=== PATIENT | male | born 1965 | race Caucasian/White ===

== ENCOUNTER 2016-03-11 22:01 | Observation (INO) ==
[2016-03-11] MEDS ORDERED: MORPHINE 2 MG/1 ML SYRINGE IV STA (22:55)
[2016-03-11] MEDS ORDERED: ALUM/MAG/SIMETH/LIDO VISC 1:1 30 ML BOTTLE PO STA (22:55)
[2016-03-11] MEDS ORDERED: ASPIRIN 325 MG TABLET PO STA (22:55)
[2016-03-11] MEDS ORDERED: KETOROLAC 30 MG/1 ML VIAL IV STA (22:55)
[2016-03-11] MEDS ORDERED: ONDANSETRON 4 MG/2 ML VIAL IV STA (22:55)
[2016-03-11] MEDS ORDERED: NITROGLYCERIN 2% OINT 1 INCH/GM PACK TOP STA (22:55)
--- NOTE | 2016-03-11 22:59 | EKG Report ---
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
[2016-03-11] MEDS ORDERED: ASPIRIN 325 MG TABLET ONE (23:00)
[2016-03-11] MEDS ORDERED: ALUM/MAG/SIMETH/LIDO VISC 1:1 30 ML BOTTLE PO ONE (23:00)
[2016-03-11 23:01] LABS: Basophils # 0.1 10*3/uL (0.0-0.2); Basophils % 0.4 % (0.0-0.8); Eosinophils # 0.3 10*3/uL (0.0-0.87); Eosinophils % 2.5 % (0.00-10.9); Hemoglobin 14.7 GM/DL (14.0-18.0); Immature Granulocytes % 0.4 %; Immature Granulocytes Absolute 0.05 #; Lymphocytes # 2.9 10*3/uL (1.4-4.0); Lymphocytes % 23.8 % (21.2-54.2); Mean Corpuscular Hemoglobin 32 PG (27-34); Mean Corpuscular Volume 92.3 FL (87-102); Mean Platelet Volume 12.9 FL (9.6-12.0); Neutrophils # 7.9 10*3/uL (1.4-7.4); Neutrophils % 64.9 % (38.7-73.9); Platelet Count 178 10*3/uL (130-400); Red Blood Count 4.55 10*6/uL (3.8-5.5); Red Cell Distribution Width 11.9 % (9.3-17.3); White Blood Count 12.2 10*3/uL (4.5-13.71)
[2016-03-11] MEDS ORDERED: NITROGLYCERIN 2% OINT 1 INCH/GM PACK TOP ONE (23:01)
[2016-03-11] MEDS ORDERED: ONDANSETRON 4 MG/2 ML VIAL ONE (23:01)
[2016-03-11] MEDS ORDERED: KETOROLAC 30 MG/1 ML VIAL ONE (23:01)
[2016-03-11] MEDS ORDERED: MORPHINE 2 MG/1 ML SYRINGE ONE (23:01)
[2016-03-11 23:06] LABS: Apearance,Urine CLEAR (Clear); Bilirubin,Urine Negative (Negative); Blood, Urine Negative (Negative); Glucose,Urine (UA) Negative (Negative); Ketones,Urine Negative (Negative); Nitrite,Urine Negative (Negative); Protein,Urine Negative; Urine Color Straw (Yellow); Urine Specific Gravity 1.004 (1.001-1.035); Urine Urobilinogen < 2.0 EU/DL (0.2-1.0)
[2016-03-11 23:08] LABS: D-Dimer <= 0.5 MG/L FEU; INR 1.3
[2016-03-11 23:17] LABS: Barbiturates Screen,Urine Negative (Negative); Benzodiazepines Screen,Urine Negative (Negative); Cannabinoid Screen,Urine Negative (Negative); Opiate Screen,Urine Negative (Negative); Phencyclidine Screen,Urine Negative (Negative)
[2016-03-11 23:25] LABS: Albumin 3.9 G/DL (3.4-5.0); Bilirubin,Total 0.6 MG/DL (0.2-1.0); Calcium 8.9 MG/DL (8.5-10.1); Magnesium 2.1 MG/DL (1.8-2.4); Osmolality,Calculated 287.8 MOS/KG (273-304); Potassium 4.1 MMOL/L (3.5-5.1); Total Protein 6.9 G/DL (6.4-8.3)
--- NOTE | 2016-03-12 00:14 | Emergency Department Note ---
I, Bessy Solano, am scribing for, and in the presence of, Jasper Dalton MD 23:14. IKrystle Charles R, MD, personally performed the services described in this documentation, ascribed by Bessy Solano in my presence, and it is both accurate and complete . Arrival - Arrival Chief Complaint: Chest Pain Stated Complaint: heart,clamy ED Nursing Triage Note: C/C had episode of right sided chest pain and epigastric pain at 17:00, got clammy while in bed. Pain comes and goes. Pt just discharged from having heart cath. No blockages. Went into A-fib after heart cath, was cardioverted from this on Friday. Had blood drawn today and supposed to follow up with Dr Roberts on Friday. Mode of Arrival: Ambulatory Limitations: No Limitations Source: Patient, Significant other Time Seen by Provider: 03/11/16 22:29 - History of Present Illness HPI Narrative: Pt is a 51 y/o male that came to the ED with c/o clammy feeling and chest tingles that began a few hours [employer]. Pt states he was in bed when he felt weird and the sxs came on. He reports he is a "newly found out heart patient." He states he was diagnosed with 20% ejection fraction 2 and a half weeks ago. Pt states he went to the ED for chest pain and was diagnosed with unspecified chest pain then he went to his diabetes doctor for further evaluation. His doctor then sent him for a stress test and and EKG. He reports when he went for the EKG his ejection fraction was determined and he never made it to the stress test. Pt had a cath done 3 days ago and states once he was back in his room he went into Afib. states his doctor hoped the new medication would make the Afib better, and he was shocked by Dr. Valero a few days later. Pt's cutch cleaner is Dr. Rizzo which he is scheduled to see him Sunday, March 13, 2016. No other complaints/pain in ED. Onset (ago): hour(s) Consistency: intermittent Severity: mild Severity scale (1-10): 2 Allergies/Adverse Reactions: Allergies Allergy/AdvReac Type Severity Reaction Status Date / Time No Known Allergies Allergy Verified 03/11/16 22:12 Home Medications: Home Medications Medication Instructions Recorded Confirmed Type RX: Aspirin Chew Tab 81 mg PO DAILY 03/01/16 03/11/16 History RX: Rosuvastatin [Crestor] 20 mg PO BEDTIME 03/01/16 03/11/16 History RX: Sitagliptin Phos/Metformin HCl 1 tablet PO DAILY 03/01/16 03/11/16 History [Janumet Xr 50-1,000 mg Tablet] RX: Amiodarone Tab [Cordarone Tab] 200 mg PO BID #60 tablet 03/05/16 03/11/16 Rx RX: Ascorbic Acid Tab [Vitamin C 1,000 mg PO BID #60 tablet 03/05/16 03/11/16 Rx Tab] RX: Carvedilol [Coreg] 12.5 mg PO BID #60 tablet 03/05/16 03/11/16 Rx RX: Magnesium Oxide 400 mg PO BID #60 tablet 03/05/16 03/11/16 Rx RX: Rivaroxaban [Xarelto] 20 mg PO DAILY W/BREAKFAST #30 03/05/16 03/11/16 Rx tablet Review of System - Review of System 12 point system: reviewed and no additional remarkable complaints except as stated - Review of System Constitutional: Present: other (clammy feeling). Absent: chills, fever Respiratory: Absent: cough Cardiovascular: Present: chest pain (chest tingles ) Gastrointestinal: Absent: abdominal pain Musculoskeletal: Absent: arm pain, back pain, leg pain, neck pain Skin: Absent: rash Neurological: Absent: headache Psychiatric: Absent: anxiety Medical,Surgical,& Family Hx - Medical History Cardio: History of: Cardiac Dysrhythmia (atrial fibrillation), Cardiovascular Problems (nonischemic cardiomyopathy with ejection fraction of 20%) Endocrine: History of: Diabetes Mellitus (NIDDM) - Surgical History Cardiac Surgeries: Sugical HX of: Cardiac Catheterization - Family History Family History: Reports;: Family Cancer (mother breast ca), Family Diabetes ( mother), Family Heart Disease (mother, father), Family Hypertension (father) - Social History Smoking Status: Never smoker Frequency of Alcohol Use: None Type of Drug Use: None Exam Vital Signs: Vital Signs Temperature 97.1 F L 03/11/16 22:05 Pulse Rate 68 03/11/16 22:05 Respiratory Rate 16 03/11/16 22:05 Blood Pressure 134/72 03/11/16 22:05 O2 Sat by Pulse Oximetry 97 03/11/16 22:05 - General General appearance: alert, in no apparent distress - Head Head exam: Present: atraumatic, normocephalic - Eye Eye exam: Present: PERRL, EOMI - ENT ENT exam: Present: mucous membranes moist. Absent: mucous membranes dry - Neck Neck exam: Present: full ROM. Absent: tenderness - Chest Chest inspection: Present: symmetric chest wall rise. Absent: tenderness - Respiratory Respiratory exam: Present: normal lung sounds bilaterally. Absent: respiratory distress - Cardiovascular Cardiovascular exam: Present: regular rate, normal rhythm, normal heart sounds - Abdominal Exam Abdominal exam: Present: soft. Absent: tenderness - Extremities Exam Extremities exam: Present: full ROM. Absent: tenderness - Back Exam Back exam: Present: full ROM. Absent: tenderness - Neurological Exam Neurological exam: Present: alert, oriented X3, CN II-XII intact. Absent: motor sensory deficit - Psychiatric Psychiatric exam: Present: normal affect, normal mood - Skin Skin exam: Present: warm, dry Course - Consultations Consultation #1: Dr Hogue will admit pt Time: 00:17 Results - Labs CBC & BMP: 03/11/16 22:25 03/11/16 22:25 Lab Results: I have reviewed the patients labs Labs: Laboratory Tests 03/11/16 03/11/16 22:25 22:25 MPV 12.9 H Neut # (Auto) 7.9 H [place] # (Auto) 1.0 H Urine Urobilinogen < 2.0 H Laboratory Tests 03/11/16 22:25 Chloride 108 H Anion Gap 15.1 H Creatinine 1.40 H Glucose 110 H Disposition Clinical Impression: Nonischemic cardiomyopathy, Chest pain Case discussed with: patient, patient's family Disposition: Still a Patient Condition: Stable Time of Disposition: 00:14
[2016-03-12] MEDS ORDERED: DEXTROSE 50% 25 GM/50 ML VIAL IV PRN (00:58)
[2016-03-12] MEDS ORDERED: GLUCAGON 1 MG VIAL IM PRN (00:58)
[2016-03-12] MEDS ORDERED: MORPHINE 2 MG/1 ML SYRINGE IV PRN (00:58)
[2016-03-12] MEDS ORDERED: MAGNESIUM SULF RIDER 2 GM in PREMIX 1 EACH IV PRN (00:58)
[2016-03-12] MEDS ORDERED: POTASSIUM CHLORIDE 20 MEQ TABLET PO PRN (00:58)
[2016-03-12] MEDS ORDERED: MAGNESIUM SULF RIDER 4 GM in PREMIX 1 EACH IV PRN (00:58)
[2016-03-12] MEDS ORDERED: ONDANSETRON 4 MG/2 ML VIAL IV PRN (00:58)
[2016-03-12] MEDS ORDERED: SODIUM CHLORIDE 0.9% 1,000 ML IV SCH (00:58)
[2016-03-12 04:57] LABS: Basophils % 0.3 % (0.0-0.8); Eosinophils # 0.2 10*3/uL (0.0-0.87); Eosinophils % 2.2 % (0.00-10.9); Hematocrit 39.9 VOL% (42.0-52.0); Hemoglobin 13.7 GM/DL (14.0-18.0); Immature Granulocytes % 0.2 %; Immature Granulocytes Absolute 0.02 #; Lymphocytes # 3.6 10*3/uL (1.4-4.0); Lymphocytes % 35.9 % (21.2-54.2); Mean Corpuscular HGB Conc 34.3 GM/DL (32-36); Mean Corpuscular Hemoglobin 32 PG (27-34); Mean Corpuscular Volume 93.2 FL (87-102); Mean Platelet Volume 13.3 FL (9.6-12.0); Monocytes % 9.7 % (1.7-12.7); Neutrophils # 5.1 10*3/uL (1.4-7.4); Neutrophils % 51.7 % (38.7-73.9); Platelet Count 165 10*3/uL (130-400); Red Blood Count 4.28 10*6/uL (3.8-5.5); Red Cell Distribution Width 11.9 % (9.3-17.3)
[2016-03-12 05:32] LABS: Albumin 3.5 G/DL (3.4-5.0); Bilirubin,Total 0.8 MG/DL (0.2-1.0); Calcium 8.5 MG/DL (8.5-10.1); Osmolality,Calculated 286.8 MOS/KG (273-304); Potassium 4.1 MMOL/L (3.5-5.1); Total Protein 6.2 G/DL (6.4-8.3); VLDL CHOLESTEROL 11.2 MG/DL
--- NOTE | 2016-03-12 07:06 | EKG Report ---
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
--- NOTE | 2016-03-12 07:17 | XRay Report ---
XR chest 2V Date: 03/11/2016 10:56 PM History: Shortness of breath Comparison: 03/01/2016 Technique: PA and lateral chest Findings: The heart remains borderline in size with small cardiac fat pads. Stable appearance of the lungs and mediastinum. Degenerative changes are noted. Impression: No acute cardiopulmonary pathology identified. PROCEDURE INTERPRETED AT [facility] OF RAD[facility]OLOG[facility] Final Report Signed by: Dr. Kirsten Quarles
--- NOTE | 2016-03-12 07:43 | XRay Report ---
Portable chest Date:[03/12/2016] Clinical history: Shortness of breath Comparison: 03/11/2016 Technique: Portable AP sitting chest Findings: The heart is borderline in size. Stable appearance of the lungs and mediastinum. Degenerative changes noted. Impression: No acute cardiopulmonary pathology identified. PROCEDURE INTERPRETED AT [facility] DEPARTMENT OF RADIOLOGY Final Report Signed by: Dr. Kirsten Quarles
[2016-03-12] MEDS ORDERED: RIVAROXABAN 20 MG TABLET PO SCH (08:00)
[2016-03-12] MEDS ORDERED: ASPIRIN CHEW 81 MG TABLET PO SCH (09:00)
[2016-03-12] MEDS ORDERED: PANTOPRAZOLE 40 MG TABLET PO SCH (09:00)
[2016-03-12] MEDS ORDERED: AMIODARONE 200 MG TABLET PO SCH (09:00)
[2016-03-12] MEDS ORDERED: MAGNESIUM OXIDE 400 MG TABLET PO SCH (09:00)
[2016-03-12] MEDS ORDERED: ASCORBIC ACID 500 MG TABLET PO SCH (09:00)
[2016-03-12] MEDS ORDERED: CARVEDILOL 12.5 MG TABLET PO SCH (09:00)
[2016-03-12] MEDS: INSULIN REGULAR 100 UNIT/ML SUBCUT SCH ×3 (09:11→16:13)
--- NOTE | 2016-03-12 09:29 | Gastrointestinal Consult Note ---
Assessment and Plan (1) Atypical chest pain Status: Acute Assessment and plan: 03/12-Sudden onset chest/epigastric pain w/o associated symptoms. Recent diagnosis of cardiomyopathy with negative heart cath last week. New onset A-fib , on Xarelto. No reports of chronic GERD. Plan and addendum to follow by Dr Sweet. Current Visit: Yes History of Present Illness Chief complaint: Atypical chest pain History of present illness: Mr. Robert is a 51 year old male who presented to the hospital last night with onset of chest pain. Pt states that he was on his way home from work yesterday when he had a sudden clammy feeling come over him and began having some "twinges " of pain in his chest. He states the pains would come and go but were sharp in nature. He denies any other associated symptoms with this however due to his recent diagnosis he came to the ER for further evaluation. Pt was seen last week inpatient after findings of 20% EF on echocardiogram as outpatient. He was brought in for outpatient heart catherization, which was negative for acute findings, however went into atrial fibrillation and required cardioversion. He was then placed on Xarelto and discharged home on Mar 05. He states he has a family history of heart disease and after all of the recent findings he became alarmed. He denies any chronic history of GERD other than occasional episodes of dyspepsia that he would take something OTC for. He denies any nausea or vomiting. Denies any weight loss, fever or chills. Denies melena or hematochezia. Denies dysphagia. Pt denies history of gallbladder disease. He is for possible discharge home later today due to has to followup with Dr Rizzo tomorrow. Cardiac workup thus far has been negative. Home Medications Medication Instructions Recorded Confirmed Type Aspirin Chew Tab 81 mg PO DAILY 03/01/16 03/12/16 History Rosuvastatin [Crestor] 20 mg PO BEDTIME 03/01/16 03/12/16 History Sitagliptin Phos/Metformin HCl 1 tablet PO DAILY 03/01/16 03/12/16 History [Janumet Xr 50-1,000 mg Tablet] Amiodarone Tab [Cordarone Tab] 200 mg PO BID #60 tablet 03/05/16 03/12/16 Rx Ascorbic Acid Tab [Vitamin C Tab] 1,000 mg PO BID #60 tablet 03/05/16 03/12/16 Rx Carvedilol [Coreg] 12.5 mg PO BID #60 tablet 03/05/16 03/12/16 Rx Magnesium Oxide 400 mg PO BID #60 tablet 03/05/16 03/12/16 Rx Rivaroxaban [Xarelto] 20 mg PO DAILY W/BREAKFAST #30 03/05/16 03/12/16 Rx tablet Allergies Allergy/AdvReac Type Severity Reaction Status Date / Time No Known Allergies Allergy Verified 03/12/16 02:06 Medical,Surgical,& Family Hx - Medical History Cardio: History of: Cardiac Dysrhythmia (atrial fibrillation with cardioversion) , Cardiovascular Problems (nonischemic cardiomyopathy with ejection fraction of 20%) Endocrine: History of: Diabetes Mellitus (NIDDM) - Surgical History Cardiac Surgeries: Sugical HX of: Cardiac Catheterization - Family History Family History: Reports;: Family Cancer (mother breast ca), Family Diabetes ( mother), Family Heart Disease (mother, father), Family Hypertension (father) - Social History Smoking Status: Never smoker Frequency of Alcohol Use: None Type of Drug Use: None 12 point system: reviewed and no additional remarkable complaints except as stated - Constitutional Constitutional: Present: as per HPI - EENT Eyes: Present: as per HPI Ears: Present: as per HPI Nose, mouth and throat: Present: as per HPI - Cardiovascular Cardiovascular: Present: chest pain at rest - Respiratory Respiratory: Present: as per HPI - Gastrointestinal Gastrointestinal: Present: as per HPI - Genitourinary Genitourinary: Present: as per HPI - Musculoskeletal Musculoskeletal: Present: as per HPI - Neurological Neurological: Present: as per HPI - Psychiatric Psychiatric: Present: as per HPI - Endocrine Endocrine: Present: as per HPI - Hematologic/Lymphatic Hematologic/Lymphatic: Present: as per HPI Exam - Constitutional Vitals: Period Temp Pulse Resp BP Sys/Otero Pulse Ox Last 24 Hr 97.7 F-98.3 F 52-60 14-18 102-115/58-70 93-100 General appearance: normal weight, no acute distress - Head Head exam: Present: normal inspection, normocephalic - Eye Eye exam: Present: other (lids and conjunctiva unremarkable). Absent: scleral icterus - ENT ENT exam: Present: normal exam, normal oropharynx - Neck Neck exam: Present: normal inspection - Respiratory Respiratory exam: Present: clear to auscultation bilaterally. Absent: rales, rhonchi, wheezes - Cardiovascular Cardiovascular exam: Present: regular rate and rhythm. Absent: diastolic murmur , JVD, systolic murmur - GI/Abdominal GI/Abdominal exam: Present: normal bowel sounds, soft. Absent: ascites, distended, mass, organomegaly, tenderness - Extremities Exam Extremities exam: Present: normal inspection, full ROM - Back Exam Back exam: Present: normal inspection - Neurological Exam Neurological exam: Present: alert, oriented X3 - Psychiatric Psychiatric exam: Present: normal affect, normal mood - Skin Skin exam: Present: normal color, warm, dry Results - Labs CBC & BMP: 03/12/16 03:35 03/12/16 03:35 Lab Results: I have reviewed the past 24 hour labs Specialty Discharge - Follow Up or Referrals - Discharge Medications No Action Sitagliptin Phos/Metformin HCl [Janumet Xr 50-1,000 mg Tablet] 1 tablet PO DAILY Amiodarone Tab [Cordarone Tab] 200 mg PO BID #60 tablet Magnesium Oxide 400 mg PO BID #60 tablet Aspirin Chew Tab 81 mg PO DAILY Rosuvastatin [Crestor] 20 mg PO BEDTIME Ascorbic Acid Tab [Vitamin C Tab] 1,000 mg PO BID #60 tablet Carvedilol [Coreg] 12.5 mg PO BID #60 tablet Rivaroxaban [Xarelto] 20 mg PO DAILY W/BREAKFAST #30 tablet
--- NOTE | 2016-03-12 15:46 | Cardiology History & Physical ---
I, Mahi Noriega RN, am scribing for, and in the presence of, Lake Darby MD 15:45. Assessment and Plan - Time spent with patient Time spent with patient: Greater than 30 minutes (1) Atypical chest pain Status: Acute Assessment and plan: Patient's pain is non-cardiac. He was recently diagnosed with nonischemic cardiomyopathy per left heart catheterization on 03/01/16 with an ejection fraction of 20%. His EKG shows sinus rhythm with no acute changes. Cardiac biomarkers are negative. We will ask GI to come see him in evaluation. Current Visit: Yes (2) History of atrial fibrillation Status: Acute Assessment and plan: Recently diagnosed. Mr. Robert experienced AF with RVR post catheterization during his last admission several days ago. He was subsequently cardioverted and started on Amiodarone, Xarelto, and Ascorbic Acid PO. He is currently in sinus rhythm with well controlled ventricular response. In the absence of any other potential etiology, I am suspicious that he has a tachycardia induced cardiomyopathy from asymptomatic episodes of paroxysmal atrial fibrillation with rapid ventricular response. He has been successfully cardioverted back to sinus rhythm. Hopefully his cardiomyopathy will improve with maintenance of sinus rhythm and medical therapy. In the meantime, the patient has a severe cardiomyopathy and would likely benefit from having a LifeVest to protect him against life-threatening cardiac arrhythmias that are associated with severe cardiomyopathy. In addition, clinically he may have sleep apnea which may contribute to both his cardiomyopathy and arrhythmia. He is due for a sleep study in the near future. Current Visit: Yes (3) Nonischemic cardiomyopathy Status: Chronic Assessment and plan: Recently diagnosed with EF of 20% per [facility] on 03/01/16. He was found to have angiographically no evidence of significant fixed coronary obstruction. We're trying to get approval for a life vest to protect him against potentially dangerous cardiac arrhythmias that are associated with severe cardiomyopathy. Current Visit: Yes (4) Unspecified sleep apnea Status: Acute Assessment and plan: He is scheduled for outpatient sleep study on Friday. Current Visit: No (5) Diabetes mellitus type 2 in obese Status: Chronic Assessment and plan: On . Current Visit: No History of Present Illness Chief complaint: atypical CP History of present illness: Mr. Robert is a 51 year old male who is recently known to cardiovascular services. He has an appointment to see Dr. Rizzo tomorrow. He has a history of nonischemic cardiomyopathy, diabetes mellitus, obesity, and tobacco use. He stopped dipping tobacco 15 days ago. He is admitted to the hospital with atypical chest pain and feeling "clammy" yesterday. He tells me he was in his usual state of health yesterday when he felt a couple of "pinching " twinges in his mid to right chest wall and epigastric region. He reports these did not last long and were not extremely painful but afterwards, he began to feel hot and clammy. He tells me that he began to feel a little panicked thinking something could be wrong with his heart so he came for evaluation. He denies shortness of breath, palpitations, dizziness, lightheadedness, syncope, fever, chills, nausea, vomiting, diarrhea, constipation, melena, hematochezia. He was recently admitted to the hospital for left heart catheterization on 03/[address] Rizzo and was found to have angiographically no evidence of significant fixed coronary obstruction and an ejection fraction of 20%. Post catheterization he developed atrial fibrillation with rapid ventricular response requiring synchronized cardioversion. He has subsequently remained in sinus rhythm since cardioversion. He is scheduled for an outpatient sleep study Friday to evaluate for obstructive sleep apnea. Prior to his heart catheterization, he tells me he had frequent heartburn when he dipped tobacco. He tells me that chocolate and spicy foods would be especially irritating but post-cath, he had not had any issues until yesterday. His EKG shows sinus rhythm with no acute changes. Cardiac biomarkers are negative. We will obtain a GI consult for non-cardiac chest pain but he has already eaten breakfast this morning. BNP is mildly elevated at 303 but he is asymptomatic and not complaining of edema or shortness of breath. The patient's previous records, notes, and studies were reviewed today. In the absence of any other potential etiology, I am suspicious that he has a tachycardia induced cardiomyopathy from asymptomatic episodes of paroxysmal atrial fibrillation with rapid ventricular response. He has been successfully cardioverted back to sinus rhythm. Hopefully his cardiomyopathy will improve with maintenance of sinus rhythm and medical therapy. In the meantime, the patient has a severe cardiomyopathy and would likely benefit from having a LifeVest to protect him against life-threatening cardiac arrhythmias that are associated with severe cardiomyopathy. I have seen, interviewed, examined the patient and reviewed his chart and discussed the case with the mid-level provider and agree with the plan as outlined in the note. Home Medications Medication Instructions Recorded Confirmed Type Aspirin Chew Tab 81 mg PO DAILY 03/01/16 03/12/16 History Rosuvastatin [Crestor] 20 mg PO BEDTIME 03/01/16 03/12/16 History Sitagliptin Phos/Metformin HCl 1 tablet PO DAILY 03/01/16 03/12/16 History [Janumet Xr 50-1,000 mg Tablet] Amiodarone Tab [Cordarone Tab] 200 mg PO BID #60 tablet 03/05/16 03/12/16 Rx Ascorbic Acid Tab [Vitamin C Tab] 1,000 mg PO BID #60 tablet 03/05/16 03/12/16 Rx Carvedilol [Coreg] 12.5 mg PO BID #60 tablet 03/05/16 03/12/16 Rx Magnesium Oxide 400 mg PO BID #60 tablet 03/05/16 03/12/16 Rx Rivaroxaban [Xarelto] 20 mg PO DAILY W/BREAKFAST #30 03/05/16 03/12/16 Rx tablet Allergies Allergy/AdvReac Type Severity Reaction Status Date / Time No Known Allergies Allergy Verified 03/12/16 02:06 12 point system: reviewed and no additional remarkable complaints except as stated Medical,Surgical,& Family Hx - Medical History Cardio: History of: Cardiac Dysrhythmia (atrial fibrillation with cardioversion) , Cardiovascular Problems (nonischemic cardiomyopathy with ejection fraction of 20%) Endocrine: History of: Diabetes Mellitus (NIDDM) - Surgical History Cardiac Surgeries: Sugical HX of: Cardiac Catheterization - Family History Family History: Reports;: Family Cancer (mother breast ca), Family Diabetes ( mother), Family Heart Disease (mother, father), Family Hypertension (father) - Social History Smoking Status: Never smoker Frequency of Alcohol Use: None Type of Drug Use: None Cardiology Physical Exam - Constitutional Vitals: Vital Signs Temp Pulse Resp BP Pulse Ox 98.3 F 60 18 115/59 93 L 03/12/16 07:35 03/12/16 07:35 03/12/16 07:35 03/12/16 07:35 03/12/16 07:35 Intake and Output 03/11/16 03/12/16 03/12/16 22:59 06:59 14:59 Intake Total 240 / 240 Output Total 400 / 400 Balance -160 / -160 Intake: Oral 240 / 240 Output: Urine 400 / 400 Other: Voiding Method Urinal Weight 262 lb 1.6 oz General appearance: no acute distress, morbidly obese - Head Head exam: Present: normal inspection, normocephalic - Eye Eye exam: Absent: conjunctival injection, periorbital swelling, scleral icterus Pupils: Present: OSVALDO. Absent: irregular - ENT ENT exam: Present: normal exam, normal external ear exam - Neck Neck exam: Present: normal inspection. Absent: tenderness - Respiratory Respiratory exam: Present: clear to auscultation bilaterally. Absent: accessory muscle use, chest wall tenderness, rales, rhonchi, stridor, wheezes - Cardiovascular Cardiovascular exam: Present: regular rate and rhythm. Absent: carotid bruit, diastolic murmur, systolic murmur - GI/Abdominal GI/Abdominal exam: Present: normal bowel sounds, soft. Absent: distended, mass , tenderness - Extremities Exam Extremities exam: Present: normal inspection, other (2+ DP pulses bilaterally). Absent: calf tenderness, edema - Neurological Exam Neurological exam: Present: alert, oriented X3, other (grossly intact, no resting or essential tremor) - Psychiatric Psychiatric exam: Present: normal affect, normal mood - Skin Skin exam: Present: normal color, warm, dry, intact Result/EKG - Labs CBC & BMP: 03/12/16 03:35 03/12/16 03:35 Lab Results: I have reviewed the past 24 hour labs Labs: Laboratory Results - last 24 hr 03/12/16 03/12/16 03/12/16 01:25 03:34 03:35 WBC 10.0 RBC 4.28 Hgb 13.7 L Hct 39.9 L MCV 93.2 MCH 32 MCHC 34.3 RDW 11.9 Plt Count 165 MPV 13.3 H Neut % (Auto) 51.7 Lymph % (Auto) 35.9 [place] % (Auto) 9.7 Eos % (Auto) 2.2 Baso % (Auto) 0.3 Neut # (Auto) 5.1 Lymph # (Auto) 3.6 [place] # (Auto) 1.0 H Eos # (Auto) 0.2 Baso # (Auto) 0.0 Immature Gran % 0.2 Nucleated RBC % 0.0 Immature Gran # 0.02 Nucleated RBCs # 0.00 Sodium Potassium Chloride Carbon Dioxide Anion Gap BUN Creatinine GFR Calculation BUN/Creatinine Ratio Glucose POC Glucose 120 H Calculated Osmolality Calcium Magnesium Total Bilirubin AST ALT Alkaline Phosphatase Troponin I 0.026 B-Natriuretic Peptide Total Protein Albumin Globulin Albumin/Globulin Ratio Triglycerides Cholesterol LDL Cholesterol VLDL Cholesterol HDL Cholesterol Heart Disease Risk Ratio 03/12/16 03/12/16 03/12/16 03:35 03:35 03:36 WBC RBC Hgb Hct MCV MCH MCHC RDW Plt Count MPV Neut % (Auto) Lymph % (Auto) [place] % (Auto) Eos % (Auto) Baso % (Auto) Neut # (Auto) Lymph # (Auto) [place] # (Auto) Eos # (Auto) Baso # (Auto) Immature Gran % Nucleated RBC % Immature Gran # Nucleated RBCs # Sodium 144 Potassium 4.1 Chloride 108 H Carbon Dioxide 28 Anion Gap 12.1 BUN 15 Creatinine 1.30 GFR Calculation 90 BUN/Creatinine Ratio 11.00 Glucose 92 POC Glucose Calculated Osmolality 286.8 Calcium 8.5 Magnesium 2.3 Total Bilirubin 0.80 AST 16 ALT 26 Alkaline Phosphatase 77 Troponin I B-Natriuretic Peptide 303 H Total Protein 6.2 L Albumin 3.5 Globulin 2.7 Albumin/Globulin Ratio 1.2 Triglycerides 56 Cholesterol 66 LDL Cholesterol 28.0 VLDL Cholesterol 11.2 HDL Cholesterol 33 L Heart Disease Risk Ratio 2.00 03/12/16 07:30 WBC RBC Hgb Hct MCV MCH MCHC RDW Plt Count MPV Neut % (Auto) Lymph % (Auto) [place] % (Auto) Eos % (Auto) Baso % (Auto) Neut # (Auto) Lymph # (Auto) [place] # (Auto) Eos # (Auto) Baso # (Auto) Immature Gran % Nucleated RBC % Immature Gran # Nucleated RBCs # Sodium Potassium Chloride Carbon Dioxide Anion Gap BUN Creatinine GFR Calculation BUN/Creatinine Ratio Glucose POC Glucose 115 H Calculated Osmolality Calcium Magnesium Total Bilirubin AST ALT Alkaline Phosphatase Troponin I B-Natriuretic Peptide Total Protein Albumin Globulin Albumin/Globulin Ratio Triglycerides Cholesterol LDL Cholesterol VLDL Cholesterol HDL Cholesterol Heart Disease Risk Ratio - EKG EKG results: interpreted by me, sinus rhythm I, [place] Dar[place] MD, personally performed the services described in this documentation, ascribed by Mahi Noriega RN in my presence, and it is both accurate and complete [id number] .
[2016-03-12 16:21] VITALS: BP 119/66
--- NOTE | 2016-03-12 16:54 | Discharge Summary ---
I, Mahi Noriega RN, am scribing for, and in the presence of, [place] Darby MD 16:54. Hospital Course - Hospital Course Hospital Course: Mr. Robert is a 51 year old male admitted last night with complaints of atypical chest pain and feeling "clammy" yesterday. He was in his usual state of health yesterday when he felt a couple of "pinching" twinges in his mid to right chest wall and epigastric region. He reports these did not last long and were not extremely painful but afterwards, he began to feel hot and clammy. Due to his recent diagnosis of nonischemic cardiomyopathy, he felt a little panicked thinking this pain could be cardiac related. He was recently admitted to the hospital for left heart catheterization on 03/[address] Rizzo and was found to have angiographically no evidence of significant fixed coronary obstruction and an ejection fraction of 20%. Post catheterization he developed atrial fibrillation with rapid ventricular response requiring synchronized cardioversion. He has subsequently remained in sinus rhythm since cardioversion. He is scheduled for an outpatient sleep study Friday to evaluate for obstructive sleep apnea. Prior to his heart catheterization, he tells me he had frequent heartburn when he dipped tobacco. He tells me that chocolate and spicy foods would be especially irritating but post-cath, he had not had any issues until yesterday. His EKG shows sinus rhythm with no acute changes. Cardiac biomarkers are negative. GI saw him in consult today. We will get him a follow up appointment to see Dr. Sweet back in clinic and send him home on Protonix daily. In the absence of any other potential etiology, I am suspicious that he has a tachycardia induced cardiomyopathy from asymptomatic episodes of paroxysmal atrial fibrillation with rapid ventricular response. He has been successfully cardioverted back to sinus rhythm. Hopefully his cardiomyopathy will improve with maintenance of sinus rhythm and medical therapy. In the meantime, the patient has a severe cardiomyopathy and would likely benefit from having a LifeVest to protect him against life-threatening cardiac arrhythmias that are associated with severe cardiomyopathy. At this time, he is stable from a cardiac standpoint and wishes to be discharged home today. We will discharge him home today. He is scheduled to follow up with Dr. Rizzo on March 14, 2016 at 10:20AM. Diagnosis - Discharge Diagnosis (1) Atypical chest pain Status: Resolved (2) History of atrial fibrillation Status: Acute (3) Nonischemic cardiomyopathy Status: Chronic (4) Unspecified sleep apnea Status: Acute (5) Diabetes mellitus type 2 in obese Status: Chronic Specialty Discharge - Follow Up or Referrals Follow up with: Adeel Rizzo MD [Physician] - 03/14/16 10:20 am (He is to follow up with Dr. Rizzo on March 14, 2016 at 10:20 AM. He needs to follow up with Dr. Sweet in clinic within 2-3 weeks. He is to keep his appointment for outpatient sleep study Friday. ) - Discharge Medications New Pantoprazole Tab [Protonix Tab] 40 mg PO DAILY #30 tablet Continue Sitagliptin Phos/Metformin HCl [Janumet Xr 50-1,000 mg Tablet] 1 tablet PO DAILY Amiodarone Tab [Cordarone Tab] 200 mg PO BID #60 tablet Magnesium Oxide 400 mg PO BID #60 tablet Aspirin Chew Tab 81 mg PO DAILY Rosuvastatin [Crestor] 20 mg PO BEDTIME Ascorbic Acid Tab [Vitamin C Tab] 1,000 mg PO BID #60 tablet Carvedilol [Coreg] 12.5 mg PO BID #60 tablet Rivaroxaban [Xarelto] 20 mg PO DAILY W/BREAKFAST #30 tablet Discharge Plan - Discharge Data Disposition: Disch To Home/Self Care Condition at Discharge: Stable Discharge Diet: diabetic diet, heart healthy Activity: resume usual activities as tolerated Hygiene: no restrictions Weight Bearing at Discharge: full weight bearing Driving: no restrictions - Discharge Medications New Pantoprazole Tab [Protonix Tab] 40 mg PO DAILY #30 tablet Continue Sitagliptin Phos/Metformin HCl [Janumet Xr 50-1,000 mg Tablet] 1 tablet PO DAILY Amiodarone Tab [Cordarone Tab] 200 mg PO BID #60 tablet Magnesium Oxide 400 mg PO BID #60 tablet Aspirin Chew Tab 81 mg PO DAILY Rosuvastatin [Crestor] 20 mg PO BEDTIME Ascorbic Acid Tab [Vitamin C Tab] 1,000 mg PO BID #60 tablet Carvedilol [Coreg] 12.5 mg PO BID #60 tablet Rivaroxaban [Xarelto] 20 mg PO DAILY W/BREAKFAST #30 tablet - Follow Up or Referral Follow Up: Adeel Rizzo MD [Physician] - 03/14/16 10:20 am (He is to follow up with Dr. Rizzo on March 14, 2016 at 10:20 AM. He needs to follow up with Dr. Sweet in clinic within 2-3 weeks. He is to keep his appointment for outpatient sleep study Friday. ) - Forms/Instructions Exam - Constitutional Vitals: Period Temp Pulse Resp BP Sys/Otero Pulse Ox Last 24 Hr 97.7 F-98.4 F 52-62 14-19 102-119/58-70 93-100 Exam: General appearance: normal weight, no acute distress - Head Head exam: Present: normal inspection, normocephalic - Eye Eye exam: Present: other (lids and conjunctiva unremarkable). Absent: scleral icterus - ENT ENT exam: Present: normal exam, normal oropharynx - Neck Neck exam: Present: normal inspection - Respiratory Respiratory exam: Present: clear to auscultation bilaterally. Absent: rales, rhonchi, wheezes - Cardiovascular Cardiovascular exam: Present: regular rate and rhythm. Absent: diastolic murmur , JVD, systolic murmur - GI/Abdominal GI/Abdominal exam: Present: normal bowel sounds, soft. Absent: ascites, distended, mass, organomegaly, tenderness - Extremities Exam Extremities exam: Present: normal inspection, full ROM - Back Exam Back exam: Present: normal inspection - Neurological Exam Neurological exam: Present: alert, oriented X3 - Psychiatric Psychiatric exam: Present: normal affect, normal mood - Skin Skin exam: Present: normal color, warm, dry Discharge Results Labs on day of discharge: Labs from last 24 hours 03/12/16 03/12/16 03/12/16 15:49 07:30 03:36 WBC RBC Hgb Hct MCV MCH MCHC RDW Plt Count MPV Neut % (Auto) Lymph % (Auto) [place] % (Auto) Eos % (Auto) Baso % (Auto) Neut # (Auto) Lymph # (Auto) [place] # (Auto) Eos # (Auto) Baso # (Auto) Immature Gran % Nucleated RBC % Immature Gran # Nucleated RBCs # Sodium Potassium Chloride Carbon Dioxide Anion Gap BUN Creatinine GFR Calculation BUN/Creatinine Ratio Glucose POC Glucose 121 H 115 H Calculated Osmolality Calcium Magnesium 2.3 Total Bilirubin AST ALT Alkaline Phosphatase Troponin I B-Natriuretic Peptide Total Protein Albumin Globulin Albumin/Globulin Ratio Triglycerides Cholesterol LDL Cholesterol VLDL Cholesterol HDL Cholesterol Heart Disease Risk Ratio 03/12/16 03/12/16 03/12/16 03:35 03:35 03:35 WBC 10.0 RBC 4.28 Hgb 13.7 L Hct 39.9 L MCV 93.2 MCH 32 MCHC 34.3 RDW 11.9 Plt Count 165 MPV 13.3 H Neut % (Auto) 51.7 Lymph % (Auto) 35.9 [place] % (Auto) 9.7 Eos % (Auto) 2.2 Baso % (Auto) 0.3 Neut # (Auto) 5.1 Lymph # (Auto) 3.6 [place] # (Auto) 1.0 H Eos # (Auto) 0.2 Baso # (Auto) 0.0 Immature Gran % 0.2 Nucleated RBC % 0.0 Immature Gran # 0.02 Nucleated RBCs # 0.00 Sodium 144 Potassium 4.1 Chloride 108 H Carbon Dioxide 28 Anion Gap 12.1 BUN 15 Creatinine 1.30 GFR Calculation 90 BUN/Creatinine Ratio 11.00 Glucose 92 POC Glucose Calculated Osmolality 286.8 Calcium 8.5 Magnesium Total Bilirubin 0.80 AST 16 ALT 26 Alkaline Phosphatase 77 Troponin I B-Natriuretic Peptide 303 H Total Protein 6.2 L Albumin 3.5 Globulin 2.7 Albumin/Globulin Ratio 1.2 Triglycerides 56 Cholesterol 66 LDL Cholesterol 28.0 VLDL Cholesterol 11.2 HDL Cholesterol 33 L Heart Disease Risk Ratio 2.00 03/12/16 03/12/16 03:34 01:25 WBC RBC Hgb Hct MCV MCH MCHC RDW Plt Count MPV Neut % (Auto) Lymph % (Auto) [place] % (Auto) Eos % (Auto) Baso % (Auto) Neut # (Auto) Lymph # (Auto) [place] # (Auto) Eos # (Auto) Baso # (Auto) Immature Gran % Nucleated RBC % Immature Gran # Nucleated RBCs # Sodium Potassium Chloride Carbon Dioxide Anion Gap BUN Creatinine GFR Calculation BUN/Creatinine Ratio Glucose POC Glucose 120 H Calculated Osmolality Calcium Magnesium Total Bilirubin AST ALT Alkaline Phosphatase Troponin I 0.026 B-Natriuretic Peptide Total Protein Albumin Globulin Albumin/Globulin Ratio Triglycerides Cholesterol LDL Cholesterol VLDL Cholesterol HDL Cholesterol Heart Disease Risk Ratio DS: Provider Consults: 03/12/16 01:07 Consult to Pharmacy [CONS] Routine Reason for Pharmacy Consult: Adjust Meds Renal Funct 03/12/16 09:11 Consult to Physician [CONS] Routine Comment: non-cardiac CP, prior hx of heartburn, new to GI Consulting Provider: Ganga Sweet Person Notified: Pat Nicholskirby Date Notified: 03/12/16 Time Notified: 09:17 Consult Notification Comment: I spoke with Pat Roberts regarding consult and she will see the patient. Thank you. 03/12/16 11:55 Consult to Case Mgmt/Social Srvs [CONS] Routine Reason for Case Mgmt/Social Srvs: Equipment Consult Comment: Please set patient up with [facility] prior to discharge. EF 20%. Expected date of discharge: 03/12/16 I, [place] Dar[place] MD, personally performed the services described in this documentation, ascribed by Mahi Noriega RN in my presence, and it is both accurate and complete [id number] .
[2016-03-12] MEDS ORDERED: ROSUVASTATIN 20 MG TABLET PO SCH (21:00)
[2016-03-13] MEDS ORDERED: sitaGLIPtin 25 MG TABLET PO SCH (09:00)
== END 2016-03-12 17:35 | disposition home or self-care (01) ==
LOC: N.ED 22:01 → INTOOBSV 03-12 00:17 → N.EDINP 03-12 00:17 → N.5E 03-12 00:47
PROVIDERS: ADMIT Internal Medicine Clinical Cardiac Electrophysiology; ATTEND Internal Medicine Clinical Cardiac Electrophysiology

== ENCOUNTER 2021-10-21 00:21 | Observation (INO) ==
[2021-10-21 01:18] LABS: Basophils # 0.1 10*3/uL (0.0-0.2); Basophils % 0.4 % (0.0-0.8); Eosinophils # 0.3 10*3/uL (0.0-0.87); Eosinophils % 2.3 % (0.00-10.9); Hematocrit 40.6 VOL% (42.0-52.0); Hemoglobin 13.9 GM/DL (14.0-18.0); Immature Granulocytes % 0.4 %; Immature Granulocytes Absolute 0.05 #; Mean Corpuscular HGB Conc 34.2 GM/DL (32-36); Mean Corpuscular Volume 95.8 FL (87-102); Monocytes # 0.7 10*3/uL (0.11-0.8); Monocytes % 5.7 % (1.7-12.7); Neutrophils % 75.2 % (38.7-73.9); Platelet Count 145 T/CUMM (130-400); Red Blood Count 4.24 MC/CUMM (3.8-5.5); Red Cell Distribution Width 12.1 % (9.3-17.3); White Blood Count 12.6 T/CUMM (4-12)
[2021-10-21 01:31] LABS: INR 1.1; PT Patient Result 12.3 SECS (10.1-12.1)
[2021-10-21 01:40] LABS: Albumin 3.8 G/DL (3.4-5.0); Bilirubin,Total 0.6 MG/DL (0.20-1.00); Osmolality,Calculated 286.3 MOS/KG (273-304); Potassium 3.8 MMOL/L (3.5-5.1); Total Protein 6.6 G/DL (6.4-8.2)
[2021-10-21] MEDS ORDERED: cefTRIAXone 1,000 MG in SODIUM CHLORIDE 0.9% 100 ML IV STA (01:44)
[2021-10-21] MEDS ORDERED: AZITHROMYCIN INJ 500 MG in SODIUM CHLORIDE 0.9% 250 ML IV STA (01:44)
[2021-10-21] MEDS ORDERED: GLUCAGON 1 MG VIAL IM PRN (02:10)
[2021-10-21] MEDS ORDERED: hydrALAZINE 20 MG/1 ML VIAL IV PRN (02:10)
[2021-10-21] MEDS ORDERED: ACETAMINOPHEN 325 MG TABLET PO PRN (02:10)
[2021-10-21] MEDS ORDERED: ONDANSETRON 4 MG/2 ML VIAL IV PRN (02:10)
[2021-10-21] MEDS ORDERED: DEXTROSE 10% 250 ML BAG IV PRN (02:26)
[2021-10-21] MEDS: carvediloL 12.5 MG TABLET PO SCH ×2 (08:49→21:08)
[2021-10-21] MEDS: ASCORBIC ACID 500 MG TABLET PO SCH ×2 (08:49→21:08)
[2021-10-21] MEDS: RIVAROXABAN 20 MG TABLET PO SCH (08:49)
[2021-10-21] MEDS: LOSARTAN 50 MG TABLET PO SCH ×2 (08:49→21:08)
[2021-10-21] MEDS: MAGNESIUM OXIDE 400 MG TABLET PO SCH ×2 (08:49→21:08)
[2021-10-21] MEDS: ASPIRIN CHEW 81 MG TABLET PO SCH (08:50)
[2021-10-21] MEDS: PANTOPRAZOLE 40 MG TABLET PO SCH (08:50)
[2021-10-21] MEDS ORDERED: ROSUVASTATIN 20 MG TABLET PO SCH (21:00)
[2021-10-21] MEDS ORDERED: LOSARTAN 50 MG TABLET PO SCH (21:00)
[2021-10-21] MEDS: ALBUTEROL/IPRATROPIUM 3 ML NEB RESP TX SCH (21:07)
[2021-10-22 02:27] LABS: Basophils % 0.3 % (0.0-0.8); Eosinophils # 0.4 10*3/uL (0.0-0.87); Eosinophils % 4.7 % (0.00-10.9); Hematocrit 38.5 VOL% (42.0-52.0); Immature Granulocytes % 0.2 %; Immature Granulocytes Absolute 0.02 #; Lymphocytes # 2.4 10*3/uL (1.4-4.0); Lymphocytes % 26.1 % (21.2-54.2); Mean Corpuscular HGB Conc 33.8 GM/DL (32-36); Mean Corpuscular Volume 97.7 FL (87-102); Monocytes # 0.7 10*3/uL (0.11-0.8); Neutrophils % 60.7 % (38.7-73.9); Platelet Count 125 T/CUMM (130-400); Red Blood Count 3.94 MC/CUMM (3.8-5.5); Red Cell Distribution Width 12.2 % (9.3-17.3); White Blood Count 9.1 T/CUMM (4-12)
[2021-10-22 02:47] LABS: Calcium 8.6 MG/DL (8.5-10.1); Osmolality,Calculated 283.3 MOS/KG (273-304); Potassium 3.9 MMOL/L (3.5-5.1)
[2021-10-22] MEDS: ALBUTEROL/IPRATROPIUM 3 ML NEB RESP TX SCH ×3 (08:02→08:05)
[2021-10-22 08:12] LABS: Albumin 3.3 G/DL (3.4-5.0); Bilirubin,Direct 0.17 MG/DL (0.0-0.20); Bilirubin,Indirect 0.5 MG/DL (0.0-1.0); Bilirubin,Total 0.7 MG/DL (0.20-1.00); Total Protein 5.9 G/DL (6.4-8.2)
[2021-10-22 08:17] VITALS: BP 118/66
[2021-10-22] MEDS: RIVAROXABAN 20 MG TABLET PO SCH (08:58)
[2021-10-22] MEDS: ASPIRIN CHEW 81 MG TABLET PO SCH (08:58)
[2021-10-22] MEDS: PANTOPRAZOLE 40 MG TABLET PO SCH (08:58)
[2021-10-22] MEDS: MAGNESIUM OXIDE 400 MG TABLET PO SCH (08:58)
[2021-10-22] MEDS: carvediloL 12.5 MG TABLET PO SCH (08:58)
[2021-10-22] MEDS: ASCORBIC ACID 500 MG TABLET PO SCH (08:59)
[2021-10-22] MEDS ORDERED: cefTRIAXone 1,000 MG in SODIUM CHLORIDE 0.9% 100 ML IV SCH (09:00)
[2021-10-22] MEDS ORDERED: AZITHROMYCIN INJ 500 MG in SODIUM CHLORIDE 0.9% 250 ML IV SCH (10:00)
== END 2021-10-22 12:25 | disposition home or self-care (01) ==
LOC: N.2W 00:21 → N.ED 00:21 → SUATTDRO 02:10 → N.2W 02:48
PROVIDERS: ADMIT Family Medicine; ATTEND Internal Medicine

== ENCOUNTER 2022-01-15 13:26 | Inpatient (IN) ==
[2022-01-15] MEDS ORDERED: ONDANSETRON 4 MG/2 ML VIAL IV PRN (13:36)
[2022-01-15] MEDS ORDERED: LACTULOSE 20 GM/30 ML UDCUP PO PRN (13:36)
[2022-01-15] MEDS ORDERED: CALCIUM CARBONATE CHEW 500 MG TABLET PO PRN (13:36)
[2022-01-15] MEDS ORDERED: ZALEPLON 5 MG CAPSULE PO PRN (13:36)
[2022-01-15] MEDS ORDERED: SIMETHICONE CHEW 125 MG TABLET PO PRN (13:36)
[2022-01-15] MEDS ORDERED: MORPHINE 2 MG/1 ML SYRINGE IV PRN (13:36)
[2022-01-15] MEDS ORDERED: BISACODYL 5 MG TABLET PO PRN (13:36)
[2022-01-15] MEDS ORDERED: ALUMINUM/MAGNES/SIMETH MAX STR 30 ML UDCUP PO PRN (13:36)
[2022-01-15] MEDS ORDERED: DIGOXIN 0.5 MG/2 ML AMP IV ONE (13:46)
[2022-01-15] MEDS ORDERED: GLUCAGON 1 MG VIAL IM PRN (15:48)
[2022-01-15] MEDS ORDERED: DEXTROSE 10% 250 ML BAG IV PRN (15:51)
[2022-01-15 15:56] LABS: Basophils # 0.1 10*3/uL (0.0-0.2); Basophils % 0.4 % (0.0-0.8); Eosinophils # 0.1 10*3/uL (0.0-0.87); Eosinophils % 0.9 % (0.00-10.9); Hematocrit 50.2 VOL% (42.0-52.0); Hemoglobin 16.3 GM/DL (14.0-18.0); Immature Granulocytes % 0.4 %; Immature Granulocytes Absolute 0.05 #; Lymphocytes # 2.6 10*3/uL (1.4-4.0); Lymphocytes % 20.8 % (21.2-54.2); Mean Corpuscular HGB Conc 32.5 GM/DL (32-36); Mean Corpuscular Volume 101.6 FL (87-102); Mean Platelet Volume 13.5 FL (9.6-12.0); Monocytes # 0.9 10*3/uL (0.11-0.8); Monocytes % 6.8 % (1.7-12.7); Neutrophils % 70.7 % (38.7-73.9); Platelet Count 160 T/CUMM (130-400); Red Blood Count 4.94 MC/CUMM (3.8-5.5); Red Cell Distribution Width 13.5 % (9.3-17.3); White Blood Count 12.5 T/CUMM (4-12)
[2022-01-15] MEDS: FUROSEMIDE 40 MG/4 ML VIAL IV SCH (16:19)
[2022-01-15 16:22] LABS: Bilirubin,Total 0.9 MG/DL (0.20-1.00); Calcium 9.3 MG/DL (8.5-10.1); Osmolality,Calculated 288.1 MOS/KG (273-304); Total Protein 7.2 G/DL (6.4-8.2)
[2022-01-15 16:42] LABS: Anisocytosis Slight; Macrocytosis 1+; Platelet Estimate Normal
[2022-01-15] MEDS: INSULIN LISPRO 100 UNIT/ML SUBCUT SCH (16:45)
[2022-01-15] MEDS: DILTIAZEM INJ 100 MG in SODIUM CHLORIDE 0.9% 100 ML IV SCH (17:14)
[2022-01-15 20:27] LABS: Bilirubin,Urine Negative (Negative); Blood, Urine Trace mg/dL (Negative); Glucose,Urine (UA) 500 mg/dL (Negative); Ketones,Urine Negative (Negative); Nitrite,Urine Negative (Negative); Protein,Urine Negative (Negative); Urine Appearance Clear (Clear); Urine Color Light Yellow (Yellow); Urine Urobilinogen 0.2 eU/dL (<2.0); Urine pH 5.5 (4.5-8.0)
[2022-01-15 20:42] LABS: Mucus,Urine Occasional /LPF (Occasional); RBC,Urine 1 /HPF (0-4)
[2022-01-15] MEDS ORDERED: carvediloL 25 MG TABLET PO SCH (21:00)
[2022-01-15] MEDS ORDERED: AMIODARONE 200 MG TABLET PO SCH (21:00)
[2022-01-15] MEDS: MAGNESIUM OXIDE 400 MG TABLET PO SCH (21:13)
[2022-01-15] MEDS: ASCORBIC ACID 500 MG TABLET PO SCH (21:13)
[2022-01-15] MEDS: GLIMEPIRIDE 2 MG TABLET PO SCH (21:13)
[2022-01-15] MEDS: ROSUVASTATIN 10 MG TABLET PO SCH (21:13)
[2022-01-15] MEDS: SACUBITRIL/VALSARTAN 49-51 MG TABLET PO SCH (21:14)
[2022-01-16 04:54] LABS: Basophils % 0.4 % (0.0-0.8); Eosinophils # 0.2 10*3/uL (0.0-0.87); Eosinophils % 1.9 % (0.00-10.9); Hematocrit 44.3 VOL% (42.0-52.0); Hemoglobin 14.5 GM/DL (14.0-18.0); Immature Granulocytes % 0.2 %; Immature Granulocytes Absolute 0.02 #; Lymphocytes % 29.5 % (21.2-54.2); Mean Corpuscular HGB Conc 32.7 GM/DL (32-36); Mean Corpuscular Volume 100.7 FL (87-102); Mean Platelet Volume 12.8 FL (9.6-12.0); Monocytes # 0.8 10*3/uL (0.11-0.8); Monocytes % 7.8 % (1.7-12.7); Neutrophils % 60.2 % (38.7-73.9); Platelet Count 138 T/CUMM (130-400); Red Cell Distribution Width 13.4 % (9.3-17.3); White Blood Count 10.2 T/CUMM (4-12)
[2022-01-16 05:22] LABS: Calcium 8.8 MG/DL (8.5-10.1); Potassium 3.7 MMOL/L (3.5-5.1); Risk Ratio 2.23; VLDL Cholesterol 13.2 MG/DL
[2022-01-16] MEDS: INSULIN LISPRO 100 UNIT/ML SUBCUT SCH ×2 (08:43→16:46)
[2022-01-16] MEDS: COENZYME Q10 100 MG CAPSULE PO SCH (08:43)
[2022-01-16] MEDS: GLIMEPIRIDE 2 MG TABLET PO SCH ×2 (08:44→22:01)
[2022-01-16] MEDS: SACUBITRIL/VALSARTAN 49-51 MG TABLET PO SCH ×2 (08:44→22:02)
[2022-01-16] MEDS: RIVAROXABAN 20 MG TABLET PO SCH (08:44)
[2022-01-16] MEDS: PANTOPRAZOLE 40 MG TABLET PO SCH (08:45)
[2022-01-16] MEDS: MAGNESIUM OXIDE 400 MG TABLET PO SCH ×2 (08:45→22:02)
[2022-01-16] MEDS: ASPIRIN CHEW 81 MG TABLET PO SCH (08:45)
[2022-01-16] MEDS: carvediloL 12.5 MG TABLET PO SCH ×2 (08:46→22:02)
[2022-01-16] MEDS: ASCORBIC ACID 500 MG TABLET PO SCH ×2 (08:46→22:02)
[2022-01-16] MEDS: FUROSEMIDE 40 MG/4 ML VIAL IV SCH ×2 (08:47→15:58)
[2022-01-16] MEDS: DIGOXIN 0.5 MG/2 ML AMP IV SCH (09:09)
[2022-01-16] MEDS: SOTALOL 80 MG TABLET PO SCH ×2 (09:09→22:02)
[2022-01-16] MEDS: SPIRONOLACTONE 25 MG TABLET PO SCH (11:34)
[2022-01-16] MEDS: DILTIAZEM INJ 100 MG in SODIUM CHLORIDE 0.9% 100 ML IV SCH (15:50)
[2022-01-16] MEDS: ROSUVASTATIN 10 MG TABLET PO SCH (22:02)
[2022-01-17 04:52] LABS: Basophils % 0.5 % (0.0-0.8); Eosinophils # 0.2 10*3/uL (0.0-0.87); Eosinophils % 2.4 % (0.00-10.9); Hematocrit 43.4 VOL% (42.0-52.0); Hemoglobin 14.3 GM/DL (14.0-18.0); Immature Granulocytes % 0.5 %; Immature Granulocytes Absolute 0.04 #; Lymphocytes # 2.5 10*3/uL (1.4-4.0); Lymphocytes % 28.7 % (21.2-54.2); Mean Corpuscular HGB Conc 32.9 GM/DL (32-36); Mean Platelet Volume 13.1 FL (9.6-12.0); Monocytes # 0.7 10*3/uL (0.11-0.8); Monocytes % 7.7 % (1.7-12.7); Neutrophils % 60.2 % (38.7-73.9); Platelet Count 142 T/CUMM (130-400); Red Blood Count 4.34 MC/CUMM (3.8-5.5); Red Cell Distribution Width 13.1 % (9.3-17.3); White Blood Count 8.7 T/CUMM (4-12)
[2022-01-17 05:27] LABS: Calcium 8.8 MG/DL (8.5-10.1); Osmolality,Calculated 290.1 MOS/KG (273-304); Potassium 3.2 MMOL/L (3.5-5.1)
[2022-01-17] MEDS: INSULIN LISPRO 100 UNIT/ML SUBCUT SCH ×2 (08:36→16:09)
[2022-01-17] MEDS ORDERED: POTASSIUM CHLORIDE 20 MEQ TABLET PO ONE (08:48)
[2022-01-17] MEDS ORDERED: DAPAGLIFLOZIN 10 MG TABLET PO SCH (09:00)
[2022-01-17] MEDS: COENZYME Q10 100 MG CAPSULE PO SCH (10:17)
[2022-01-17] MEDS: FUROSEMIDE 40 MG/4 ML VIAL IV SCH ×2 (10:17→16:16)
[2022-01-17] MEDS: PANTOPRAZOLE 40 MG TABLET PO SCH (10:17)
[2022-01-17] MEDS: SACUBITRIL/VALSARTAN 49-51 MG TABLET PO SCH ×2 (10:18→21:00)
[2022-01-17] MEDS: ASPIRIN CHEW 81 MG TABLET PO SCH (10:18)
[2022-01-17] MEDS: MAGNESIUM OXIDE 400 MG TABLET PO SCH ×2 (10:19→21:00)
[2022-01-17] MEDS: SOTALOL 80 MG TABLET PO SCH ×2 (10:19→21:00)
[2022-01-17] MEDS: carvediloL 12.5 MG TABLET PO SCH ×2 (10:19→21:00)
[2022-01-17] MEDS: ASCORBIC ACID 500 MG TABLET PO SCH ×2 (10:19→20:59)
[2022-01-17] MEDS: POTASSIUM CHLORIDE 20 MEQ TABLET PO SCH ×2 (10:20→20:59)
[2022-01-17] MEDS: RIVAROXABAN 20 MG TABLET PO SCH (10:20)
[2022-01-17] MEDS: SPIRONOLACTONE 25 MG TABLET PO SCH (10:20)
[2022-01-17] MEDS: DIGOXIN 0.5 MG/2 ML AMP IV SCH (10:21)
[2022-01-17] MEDS: DILTIAZEM INJ 100 MG in SODIUM CHLORIDE 0.9% 100 ML IV SCH (16:08)
[2022-01-17] MEDS: ROSUVASTATIN 10 MG TABLET PO SCH (21:00)
[2022-01-18 05:37] LABS: Basophils % 0.5 % (0.0-0.8); Eosinophils # 0.2 10*3/uL (0.0-0.87); Eosinophils % 2.6 % (0.00-10.9); Hematocrit 44.2 VOL% (42.0-52.0); Hemoglobin 14.5 GM/DL (14.0-18.0); Immature Granulocytes % 0.5 %; Immature Granulocytes Absolute 0.04 #; Lymphocytes # 2.4 10*3/uL (1.4-4.0); Lymphocytes % 29.2 % (21.2-54.2); Mean Corpuscular HGB Conc 32.8 GM/DL (32-36); Mean Corpuscular Volume 100.7 FL (87-102); Mean Platelet Volume 12.9 FL (9.6-12.0); Monocytes # 0.8 10*3/uL (0.11-0.8); Monocytes % 9.5 % (1.7-12.7); Neutrophils % 57.7 % (38.7-73.9); Platelet Count 151 T/CUMM (130-400); Red Blood Count 4.39 MC/CUMM (3.8-5.5); Red Cell Distribution Width 13.1 % (9.3-17.3)
[2022-01-18 05:53] LABS: Calcium 9.3 MG/DL (8.5-10.1); Osmolality,Calculated 294.8 MOS/KG (273-304); Potassium 3.8 MMOL/L (3.5-5.1)
[2022-01-18] MEDS ORDERED: SODIUM CHLORIDE 0.9% 1,000 ML IV SCH (08:30)
[2022-01-18] MEDS: SOTALOL 80 MG TABLET PO SCH (09:04)
[2022-01-18] MEDS: DIGOXIN 0.5 MG/2 ML AMP IV SCH (09:05)
[2022-01-18] MEDS: INSULIN LISPRO 100 UNIT/ML SUBCUT SCH (09:08)
[2022-01-18] MEDS ORDERED: propofoL 200 MG/20 ML VIAL IV ONE (09:54)
[2022-01-18] MEDS ORDERED: ETOMIDATE 20 MG/10 ML VIAL IV ONE (09:54)
[2022-01-18] MEDS ORDERED: LIDOCAINE 2% 5 ML VIAL ONE (09:54)
[2022-01-18] MEDS: POTASSIUM CHLORIDE 20 MEQ TABLET PO SCH (10:32)
[2022-01-18] MEDS: FUROSEMIDE 40 MG/4 ML VIAL IV SCH ×2 (10:32→16:40)
[2022-01-18] MEDS: RIVAROXABAN 20 MG TABLET PO SCH (10:32)
[2022-01-18] MEDS: PANTOPRAZOLE 40 MG TABLET PO SCH (10:32)
[2022-01-18] MEDS: ASPIRIN CHEW 81 MG TABLET PO SCH (10:32)
[2022-01-18] MEDS: MAGNESIUM OXIDE 400 MG TABLET PO SCH (10:32)
[2022-01-18] MEDS: SPIRONOLACTONE 25 MG TABLET PO SCH (10:32)
[2022-01-18] MEDS: carvediloL 12.5 MG TABLET PO SCH (10:32)
[2022-01-18] MEDS: SACUBITRIL/VALSARTAN 49-51 MG TABLET PO SCH (10:32)
[2022-01-18] MEDS: ASCORBIC ACID 500 MG TABLET PO SCH (10:32)
[2022-01-18] MEDS: COENZYME Q10 100 MG CAPSULE PO SCH (10:32)
[2022-01-18 11:59] VITALS: BP 103/65
[2022-01-18] MEDS: DILTIAZEM INJ 100 MG in SODIUM CHLORIDE 0.9% 100 ML IV SCH (16:40)
[2022-01-29] MEDS ORDERED: SODIUM CHLORIDE 0.9% 1,000 ML IV SCH (06:00)
== END 2022-01-18 14:20 | disposition home or self-care (01) | DRG 291 ==
LOC: N.TELEN
PROVIDERS: ADMIT Internal Medicine Interventional Cardiology; ATTEND Internal Medicine Interventional Cardiology